=== PATIENT | female | born 1940 | race Caucasian/White ===

== ENCOUNTER 2019-11-28 12:43 | Emergency (ER) | payer BC ==
[~2019-11-28] VITALS: Ht 165.1 cm; Wt 92.5 kg
[2019-11-28] MEDS ORDERED: PROLIA60 MG/1 ML SUBQ (12:59)
[2019-11-28] MEDS ORDERED: ARIMIDEX1 MG PO (13:00)
[2019-11-28] MEDS ORDERED: HYDROCHLOROTHIA25 M2 PO (13:00)
[2019-11-28] MEDS ORDERED: KEFLEX500 M1 PO (13:49)
[2019-11-28 14:15] VITALS: BP 139/78
== END 2019-11-28 14:16 | disposition home or self-care (01) ==
LOC: M.ERS 12:43
DX: S60.551A Superficial foreign body of right hand, initial encounter (principal); Z88.8 Allergy status to other drugs, medicaments and biological substances; Z79.899 Other long term (current) drug therapy; Z85.3 Personal history of malignant neoplasm of breast; W22.8XXA Striking against or struck by other objects, initial encounter; Y93.89 Activity, other specified; Y92.89 Other specified places as the place of occurrence of the external cause; Y99.9 Unspecified external cause status